=== PATIENT | male | born 1955 | race Caucasian/White ===

== ENCOUNTER → 2019-08-02 | Outpatient (CLI) | payer BC, MEDICARE ==
--- NOTE | 2019-08-02 17:21 | RAD ---
DUPLEX SONOGRAPHY OF THE PERIPHERAL ARTERIAL SYSTEM OF THE RIGHT LOWER EXTREMITY Clinical indications: Right ankle redness/swelling. Findings: Duplex sonography of the peripheral arterial system of the right lower extremity including [place] scale and color flow and spectral waveform analysis was performed.Triphasic and biphasic waveforms are seen. The right peroneal artery cannot be identified and therefore may be occluded. No other occlusive disease or significant stenosis is seen. The measurements were performed using the NASCET criteria. Peak systolic flow velocities are as follows: Right leg: common femoral artery- 124 cm/sec, profunda femoral artery -105 cm/sec, proximal superficial femoral artery -103 cm/sec, mid superficial femoral artery -116 cm/sec, distal superficial femoral artery- 90 cm/sec, popliteal artery -90 cm/sec, proximal posterior tibial artery- 48 cm/sec, distal posterior tibial artery- 55 cm/sec, peroneal artery- 0 cm/sec, anterior tibial artery- 105 cm/sec, dorsalis pedis artery -139 cm/sec. Impression: Occlusion of the right peroneal artery. Electronically signed by: Stanford Isaac MD (08/02/2019 5:18 PM) [id number]
== END ==
LOC: US 16:11
PROVIDERS: ATTEND Family Medicine
DX: I77.89 Other specified disorders of arteries and arterioles (principal)
CPT/HCPCS: 93926

== ENCOUNTER 2019-08-16 08:25 | Outpatient (CLI) | payer BC ==
[~2019-08-16] VITALS: Ht 180.3 cm; Wt 99.8 kg
[2019-08-16] MEDS ORDERED: IV NORMAL SALINE 1000ML BAG 1,000 ML IV SCH (08:31)
[2019-08-16] MEDS ORDERED: CLOP75TA PO (08:57)
[2019-08-16] MEDS ORDERED: CHOL500045 PO (08:57)
[2019-08-16] MEDS ORDERED: PIOG30TA62 PO (08:57)
[2019-08-16] MEDS ORDERED: LISI10TA2 PO (08:57)
[2019-08-16] MEDS ORDERED: METO50TA6 PO (08:57)
[2019-08-16] MEDS ORDERED: GLIM4TAB4 PO (08:57)
[2019-08-16] MEDS ORDERED: METF10007 PO (08:57)
[2019-08-16] MEDS ORDERED: SIMV40TA18 PO (08:57)
[2019-08-16 09:13] LABS: CALCIUM 9.4 mg/dL (8.5-10.1); CREATININE 1.1 mg/dL (0.7-1.3); GFR 67.2
[2019-08-16] MEDS ORDERED: IODIXANOL 320 MG/ML 100 ML VIAL. ONE (09:16)
[2019-08-16] MEDS ORDERED: LIDOCAINE WITH 8.4% SOD BICARB 3 ML DISP.SYRIN. ONE (09:17)
[2019-08-16] MEDS ORDERED: HEPARIN for ARTERIAL LINE 0 ML ONE (09:17)
[2019-08-16 09:18] LABS: BASO # 0.1 x10^3/uL (0.0-0.2); BASO % 1 % (0-3); EOS # 0.4 x10^3/uL (0.0-0.7); EOS % 7 % (0-3); HEMATOCRIT 37.8 % (39.0-53.0); HEMOGLOBIN 12.6 g/dL (13.0-17.5); LYMPH # 1.5 x10^3/uL (1.0-4.8); LYMPH % 26 % (24-48); MEAN CORPUSCULAR HEMOGLOBIN 32 pg (25-35); MEAN CORPUSCULAR HGB CONC 33 g/dL (31-37); MEAN CORPUSCULAR VOLUME 94 fL (79-100); MONO # 0.5 x10^3/uL (0.0-1.1); MONO % 9 % (0-9); NEUT # 3.2 x10^3/uL (1.8-7.7); NEUT % 57 % (31-73); PLATELET COUNT 280 x10^3/uL (140-400); RED BLOOD COUNT 4.01 x10^6/uL (4.30-5.70); RED CELL DISTRIBUTION WIDTH 12.9 % (11.5-14.5); WHITE BLOOD COUNT 5.7 x10^3/uL (4.0-11.0)
[2019-08-16 09:40] LABS: PROTHROMBIN TIME PATIENT 13.8 SEC (11.7-14.0)
[2019-08-16 09:47] VITALS: BP 128/61
--- NOTE | 2019-08-16 09:56 | NUR ---
Dr Jaramillo here to see pt and decision made to cancel AARO and do CTA of lower extremities. Pt and family voiced understanding of situation. IV started and pt resting comfortably. Awaiting pre auth for CT. THOR CRABTREE
--- NOTE | 2019-08-16 11:27 | NUR ---
Patient completed CTA of right leg completed. Dr Jaramillo will review images then will contact Dr. Landeros regarding next step. Patient left facility with via wheelchair.
== END 2019-08-16 11:30 | disposition home or self-care (01) ==
LOC: INTRAD 08:25
PROVIDERS: ATTEND Family Medicine
DX: I73.9 Peripheral vascular disease, unspecified (principal); Z53.8 Procedure and treatment not carried out for other reasons
CPT/HCPCS: 36415; 80048; 85025; 85610

== ENCOUNTER → 2019-08-16 | Outpatient (CLI) | payer BC ==
[~2019-08-16] MED LIST: CHOL500045 PO; CLOP75TA PO; GLIM4TAB4 PO; IOHEXOL 350 MG/ML 100 ML VIAL. IV ONE; LISI10TA2 PO; METF10007 PO; METO50TA6 PO; PIOG30TA62 PO; SIMV40TA18 PO
[2019-08-16 09:47] VITALS: BP 128/61
--- NOTE | 2019-08-16 15:40 | RAD ---
CT of the abdomen and pelvis with bilateral lower extremity arterial runoffs, no comparison, for arterial disease, right lower extremity wound. TECHNIQUE: Contiguous axial images are obtained from the aortic hiatus to the feet following administration of IV contrast in the arterial phase. Sagittal and coronal MIPS are evaluated as are 3-D volume rendered images of the vasculature. Nonvascular findings: Visualized portions of the liver are unremarkable. Cholelithiasis is seen with no CT evidence of acute cholecystitis. Pancreas appears unremarkable. Visualized spleen is unremarkable. Bilateral adrenal glands are grossly unremarkable. There is a subcentimeter exophytic cyst involving the posterior inferior left kidney, with no other parenchymal abnormalities involving either kidney. No hydronephrosis. No free or loculated fluid collection is seen within the abdomen or pelvis. Urinary bladder is fluid distended and grossly unremarkable. No suspicious adenopathy is seen. Evaluation of the large and small bowel is limited by lack of oral contrast, however no gross abnormality is are evident. Seminal vesicles are normal in appearance. There is fatty atrophy of the musculature diffusely, particularly notable in the gluteus and hamstring muscles. There is unilateral pedal edema involving the right lower extremity below the knee, with minimal edema involving the left lower extremity. There are degenerative changes of both knees and ankles. No suspicious osteoblastic or osteolytic bone lesions are identified. Vascular findings: The aorta is nonaneurysmal. The celiac artery, superior mesenteric artery, and right renal artery are widely patent. There is moderate ostial atherosclerotic stenosis of left renal artery. The inferior mesenteric artery is patent. Right lower extremity: The right common iliac, external iliac, internal iliac, and common femoral arteries are patent with only mild atherosclerosis. There is soft atherosclerotic plaque in the right superficial femoral artery, resulting in approximately 50 percent stenosis near its origin, with a few other areas of lesser stenosis elsewhere. There is in-line flow to the popliteal artery which demonstrates similar appearance with at least 1 area of soft atherosclerotic narrowing to approximately 50 percent. The origin of the right anterior tibial artery is not well seen, however the vessel immediately distal to its origin is patent and perfused. The tibioperoneal trunk is patent, and there is in-line flow to the posterior tibial artery and peroneal artery. Flow is seen within the dorsalis pedis artery and posterior tibial arteries of the foot as well, though there is suggestion of stenoses near the ankle within the distal anterior tibial and posterior tibial arteries. All runoff vessels are circumferentially calcified. Left lower extremity: The left common iliac, internal iliac, external iliac, and and common femoral arteries are widely patent with minimal atherosclerosis. The left superficial femoral and profunda femoral arteries are also widely patent. There the junction of the superficial femoral artery and popliteal artery, there is a mixed atherosclerotic plaque which results in roughly 30 percent stenosis focally. The remainder the popliteal artery is notable only for mild atherosclerosis with no significant stenosis. The left anterior tibial artery is patent and its origin as is the tibioperoneal trunk, and there is in-line flow to three-vessel runoff, with circumferential calcification of all 3 vessels. There appears to be flow to the level of the dorsalis pedis artery of the foot and the posterior tibial artery of the foot, with mild multifocal stenosis throughout the runoff vessels. IMPRESSION: 1. Cholelithiasis without CT evidence of acute cholecystitis. 2. Unilateral pedal edema involving the right lower extremity. Consider further evaluation with venous duplex ultrasound study if there is clinical concern for deep vein thrombosis, or lower extremity of a superficial venous ultrasound study to evaluate for venous insufficiency if clinically warranted. 3. Unremarkable aortoiliac arteries with minimal atherosclerosis. 4. Soft atherosclerotic plaque in the right superficial femoral artery resulting in roughly 50 percent stenosis proximally near its origin. 5. Soft atherosclerotic plaque in the mid right popliteal artery, likely producing 4050 percent stenosis as well. 6. Three-vessel runoff on the right with patchy areas of stenosis particularly at the ankles. The ostium of the right anterior tibial artery is not well seen and may be stenotic as well. All right runoff vessels are circumferentially calcified. 7. Mild multifocal atherosclerosis throughout the left femoropopliteal arteries, with an intact three-vessel runoff with mild multifocal disease. All 3 left runoff vessels are once again circumferentially calcified. PQRS Compliance Statement: One or more of the following individualized dose reduction techniques were utilized for this examination: 1. Automated exposure control 2. Adjustment of the mA and/or kV according to patient size 3. Use of iterative reconstruction technique Electronically signed by: Edwin Barrett MD (08/16/2019 3:37 PM) [id number]
== END | disposition home or self-care (01) ==
LOC: CT 16:00
PROVIDERS: ATTEND Surgery
DX: K80.20 Calculus of gallbladder without cholecystitis without obstruction (principal); S81.801A Unspecified open wound, right lower leg, initial encounter; N28.1 Cyst of kidney, acquired; I70.1 Atherosclerosis of renal artery; I70.291 Other atherosclerosis of native arteries of extremities, right leg; X58.XXXA Exposure to other specified factors, initial encounter; Y93.89 Activity, other specified; Y92.89 Other specified places as the place of occurrence of the external cause; Y99.8 Other external cause status
CPT/HCPCS: 75635; Q9967

== ENCOUNTER → 2019-10-04 | Outpatient (CLI) | payer BC ==
[~2019-10-04] MED LIST changes: -GLIM4TAB4 PO; +GLIM4TAB8 PO; -IOHEXOL 350 MG/ML 100 ML VIAL. IV ONE
--- NOTE | 2019-10-04 14:49 | RAD ---
VENOUS LOWER EXTREMITY LEFT History: Acute left lower extremity edema. Comparison: None. Discussion: Multiple longitudinal and transverse high resolution real-time images of the venous system of left lower extremity were obtained with color and Doppler sampling. The common femoral, superficial femoral, popliteal and proximal calf veins are all patent and demonstrate normal flow and compressibility. Normal respiratory phasicity and augmentation is present. Impression: 1. No evidence of deep vein thrombosis. Electronically signed by: Teddy Tellez DO (10/04/2019 2:46 PM) [id number]
== END | disposition home or self-care (01) ==
LOC: US 14:02
PROVIDERS: ATTEND Preventive Medicine Undersea and Hyperbaric Medicine
DX: R60.0 Localized edema (principal)
CPT/HCPCS: 93971

== ENCOUNTER → 2020-04-12 | Outpatient (CLI) | payer BC ==
--- NOTE | 2020-04-12 14:26 | CARD ---
MR#: [id number] Date of Study: 04/12/2020 Ordering Physician: YAW GARCIA, Referring Physician: YAW GARCIA, Tech: Martha Burden APPROVED REPORT EXAM: Two-dimensional and M-mode echocardiogram with Doppler and color Doppler. Other Information Quality : FairHR: 80bpm Technically limited study due to body habitus. INDICATION Pulmonary Hypertention Lymphedema RISK FACTORS Hypertension Hyperlipidemia Diabetes 2D DIMENSIONS Left Atrium(2D)3.1 (1.6-4.0cm)IVSd1.2 (0.7-1.1cm) Aortic Root(2D)2.9 (2.0-3.7cm)LVDd4.7 (3.9-5.9cm) LVOT Diameter2.0 (1.8-2.4cm)PWd0.9 (0.7-1.1cm) LVDs2.5 (2.5-4.0cm)FS (%) 47.5 % SV81.1 mlLVEF(%)78.9 (>50%) Aortic Valve AoV Peak Giovani.133.6cm/sAoV VTI23.3cm AO Peak GR.7.1mmHgLVOT Peak Giovani.106.1cm/s LVOT VTI 21.22cmAO Mean GR.4mmHg JOSE MANUEL (VMAX)1.23rn3RMN (VTI)2.92cm2 Mitral Valve MV E Cufjqtbk08.0cm/sMV DECEL [id number] MV A [place]27.4cm/sMV E Mean Gr.2mmHg MV ZSI12xwE/A Ratio0.9 MVA (PHT)2.46cm2 TDI E/Lateral E'9.4E/Medial E'8.5 Pulmonary Valve PV Peak Pnnawwzu545.3cm/sPV Peak Grad.5mmHg Tricuspid Valve TR P. Yzvyhxjv916ra/sRAP SLQVMYJC3wtMw TR Peak Gr.38csEpZVQF34awSn Pulmonary Vein S1 Ydwjupeo20.4cm/sD2 Qhqwjkzi30.2cm/s PVa [id number] LEFT VENTRICLE The left ventricle is normal size. There is borderline concentric left ventricular hypertrophy. The E jection Fraction is 60-65%. The left ventricular systolic function is normal and the ejection fractio n is within normal range. There is normal LV segmental wall motion. Transmitral Doppler flow pattern is Grade II-pseudonormal filling dynamics. RIGHT VENTRICLE The right ventricle is normal size. There is normal right ventricular wall thickness. The right ventr icular systolic function is normal. ATRIA The left atrium size is normal. The right atrium size is normal. The interatrial septum is intact wit h no evidence for an atrial septal defect or patent foramen ovale as noted on 2-D or Doppler imaging. AORTIC VALVE The aortic valve is thickened but opens well. Doppler and Color Flow revealed no significant aortic r egurgitation. There is no significant aortic valvular stenosis. MITRAL VALVE The mitral valve is normal in structure and function. There is no evidence of mitral valve prolapse. There is no mitral valve stenosis. Doppler and Color Flow revealed no mitral valve regurgitation note d. TRICUSPID VALVE The tricuspid valve is normal in structure and function. Doppler and Color Flow revealed trace tricus pid regurgitation with an estimated PAP of 39 mmHg. There is no tricuspid valve stenosis. PULMONIC VALVE The pulmonic valve is not well visualized. Doppler and Color Flow revealed no pulmonic valvular regur gitation. There is no pulmonic valvular stenosis. GREAT VESSELS The aortic root is normal in size. The IVC is dilated and collapses >50% with inspiration. PERICARDIAL EFFUSION There is no evidence of significant pericardial effusion. Critical Notification Critical Value: No <Conclusion> The Ejection Fraction is 60-65%. The left ventricular systolic function is normal and the ejection fr action is within normal range. There is normal LV segmental wall motion. Doppler and Color Flow revealed trace tricuspid regurgitation with an estimated PAP of 39 mmHg. Signed by : Tre Luque, Electronically Approved : 04/12/2020 14:25:54
== END ==
LOC: ECHO 12:49
PROVIDERS: ATTEND Family Medicine
DX: I89.0 Lymphedema, not elsewhere classified (principal)
CPT/HCPCS: 93306